=== PATIENT | female | born 1980 | race Caucasian/White ===

== ENCOUNTER → 2018-07-28 | Outpatient (CLI) | payer OTHER ==
--- NOTE | 2018-07-28 17:23 | Diagnostic Imaging Report ---
Exam:Focused ultrasound of the right breast and lateral chest wall History: Right lateral chest wall pain Comparison: None available Findings: No cystic or solid masses are identified. No abnormal lymphadenopathy. Impression: Negative study Signed by: Dr. Kayden Baeza DO on 07/28/2018 5:19 PM
--- NOTE | 2018-07-29 08:49 | Diagnostic Imaging Report ---
#[id number] [facility] : 07/28/2018 No prior exams were available for comparison. Color flow and real-time ultrasound were performed on the entire right breast with scanning in all four quadrants, retroareolar region, right axilla and in the right lateral chest wall where the patient has pain. -There is no evidence of a cystic or solid mass. No abnormal lymphadenopathy. IMPRESSION: NEGATIVE There is no sonographic evidence of malignancy. A 1 year screening mammogram is recommended. Kayden Baeza Jr., D.O. cw/:07/28/2018 17:17:45 Bookstore Manager: YASMANI SAHU [facility], [facility] letter sent: Normal Exam Ultrasound BI-RADS: 1 Negative
== END ==
LOC: US 13:08
PROVIDERS: ATTEND Family Medicine
DX: M79.621 Pain in right upper arm (principal); N64.4 Mastodynia; R07.89 Other chest pain; M79.89 Other specified soft tissue disorders
CPT/HCPCS: 76882